=== PATIENT | male | born 2000 | race Hispanic/Latino ===

== ENCOUNTER 2018-11-23 21:18 | Emergency (ER) | payer OTHER, SELFPAY ==
[2018-11-23] MEDS ORDERED: Dexamethasone 4 mg/ml Vial ONE (21:55)
== END 2018-11-23 22:30 | disposition home or self-care (01) ==
LOC: ERS 21:18
DX: J06.9 Acute upper respiratory infection, unspecified (principal)
CPT/HCPCS: 87081; 87430; 99283; J1100